=== PATIENT | female | born 1990 | race Caucasian/White ===

== ENCOUNTER 2017-02-20 09:58 | Emergency (ER) | payer BC ==
[~2017-02-20] VITALS: Ht 162.6 cm; Wt 54.4 kg
[~2017-02-20 09:58] MED LIST: AMOXICILLIN875 MG PO; FLONASE 50 MCG16 GM; MEDROL 4MG. DOSE4 MG PO
[2017-02-20] MEDS ORDERED: FLONASE 50 MCG16 GM (10:30)
[2017-02-20] MEDS ORDERED: PREDNISONE 20MG20 MG PO (10:30)
--- NOTE | 2017-02-20 10:30 | Urgent Treatment Center Report ---
History of Present Issue Date/Time Seen by Provider 02/20/17 1010 Visit Reason Pt arrived:Walked Presenting Problem:PT C/O CONGESTION, SINUS PRESSURE, FORD, AND DRAINAGE Location if Accident: Onset of symptoms date/time:/ or onset unknown for:MEDICAL HX UNKNOWN Have you (or family members/close friends) recently traveled outside the [place]? N If Yes, where/when: Have you had exposure to infectious disease within the past month? TB? Other? Specify: c/o "I think I have a sinus infection". Started w/ "cold symptoms" Friday, 4 days ago. Since then, nasal congeston w/ maxillary sinus pressure despite mucinex and nyquil. Was helping but today it hasn't "so I knew I needed something more". Denies fever, malaise. Occasional "sinus headache". Source patient Exam Limitations no limitations ALLERGIES Coded Allergies: No Known Allergies (09/21/16) History Medical History General CAD? No Angina: No [place]: No Hypertension? No Hyperlipidemia? No CHF? No DVT? No PE? No COPD? No Asthma? No Anemia? No GERD? No Gastric ulcers? No GI Bleed? No Hernia? No Thyroid Problems? No Hypothyroidism? No CVA? No Seizures? No Diabetes? No Renal Insuffiency? No UTI? No Stones? No BPH? No GB Disease: No Nephritic Syndrome? No Asplenia? No Hepatitis? No Sickle Cell Disease? No Arthritis? No Migraines? No Cataracts? No Glaucoma? No MRSA? No HIV? No TB? No Anxiety? No Depression? No Cancer? No More? No Immunization HX DT/Tetanus Unknown Surgical Hx Previous Surgery?N AMBULATORY CARE COORDINATOR Hx LMP 1 Week Ago Social History Smoking Hx Smoker: Never Smoker Tobacco: No Alcohol Alcohol: No Review of Systems All Other Systems Reviewed and Negative Constitutional see HPI Eyes denies drainage ENT see HPI, ear pain ("not pain, occasional pressure), nose discharge ("at first, now congested"), nose congestion. denies: ear discharge, throat pain, throat swelling. Respiratory denies cough Gastrointestinal denies no symptoms reported Skin denies change in color, denies lumps, denies rash Psychiatric/Neurological see HPI Physical Exam Vital Signs Vital Signs Date Time Temp Pulse Resp B/P Pulse O2 O2 Flow FiO2 Ox Delivery Rate 02/20 1007 98.7 75 20 112/75 100 General Appearance normal appearance, no apparent distress Eye Exam - bilateral eye normal exam Ear, Nose, Throat nasal congestion, mild maxillary sinus pressure bilaterally, no frontal sinus pressure, brit EACs and TMs normal, normal pharynx Neck non-tender, supple Respiratory Status No: respiratory distress, productive cough, non productive cough. Lung Sounds anterior: lungs clear. posterior: lungs clear. bilateral: lungs clear. Cardiovascular regular rate/rhythm, no peripheral edema, no murmur Neurologic alert, oriented x 3 Skin normal color, warm/dry Lymphatic no adenopathy Medical Decision Making LABS/Meds/Orders Pt receiving controlled substance in ED? No Departure Departure Time of Disposition 1026 Disposition DC Home or Self Care(routine) Clinical Impression Primary Impression: Sinusitis, acute maxillary Qualifiers: Recurrence: non-recurrent Qualified Code: J01.00 - Acute maxillary sinusitis, unspecified Condition STABLE Referrals NO REFERRAL Follow up with primary care for new or worsening symptoms or no improvement over the next 4-6 days. Patient Instructions DI for Sinusitis Additional Instructions * Start Sudafed. 12 hour if if makes you not be able to sleep but if you don't have side effects, 24 hour. * Start Flonase 2 sprays each nostril daily to help with nasal congestion, sinus and ear pressure/inflammation * Start steroid today. Helps with inflammation and therefore, congestion and sinus pain. Follow directions on package. Rvwd side effects. Pt reports they have taken them before without complications or side effects. * Lots of fluids * Sleep elevated * Humidifier/vaporizer * Continue Sinus rinse but twice a day until seeing improvement. Discharge Counseling Counseled pt/family regarding diagnosis, medications/RX, home care, follow up needs Prescriptions Current Visit Scripts Fluticasone Propionate (Flonase 50 Mcg Nasal [place]) 2 SPRAY NA DAILY #1 BOT Prednisone (Prednisone 20MG) 20 MG PO BID #6 TAB at 1037
[2017-02-20 10:38] VITALS: BP 112/75
--- OUTSIDE RECORDS SUMMARY | 2017-02-27 18:19 | External Medical Summary Rpt | CCD ---
Demographics Preferred Language Croatian Marital Status Unknown Quaker Affiliation Unknown Race Unknown Ethnic Group Unknown Author Author , GIO POEWRS Address Unknown Phone Immunization No patient found.
--- OUTSIDE RECORDS SUMMARY | 2017-02-27 18:19 | External Medical Summary Rpt | CCD ---
Demographics Preferred Language Kosovan Marital Status Unknown Worship Affiliation Unknown Race Unknown Ethnic Group Unknown Author Author , GIO POWERS Address Unknown Phone Immunization No patient found.
== END 2017-02-20 10:38 | disposition home or self-care (01) ==
LOC: UTC 09:58
DX: J01.00 Acute maxillary sinusitis, unspecified (principal)